=== PATIENT | female | born 1975 ===

== ENCOUNTER 2017-04-22 08:30 | Day surgery (SDC) | payer OTHER ==
[2017-04-22] MEDS ORDERED: CODE1TAB37 PO (13:10)
== END 2017-04-22 14:25 | disposition home or self-care (01) ==
LOC: CIR.AMB 08:30
DX: N83.12 Corpus luteum cyst of left ovary (principal); N80.1 Endometriosis of ovary; N73.6 Female pelvic peritoneal adhesions (postinfective); N83.292 Other ovarian cyst, left side; N83.291 Other ovarian cyst, right side; N92.5 Other specified irregular menstruation

== ENCOUNTER 2018-12-29 16:24 | Inpatient (IN) | payer OTHER ==
[~2018-12-29] VITALS: Ht 160 cm; Wt 89.8 kg
[~2018-12-29 16:24] MED LIST: CODE1TAB37 PO
== END 2019-01-13 09:32 | disposition home or self-care (01) | DRG 743 ==
LOC: O/R 01-11 06:01 → OB/GYN 01-11 06:01 → SURG 01-11 07:45 → OB/GYN 01-11 11:58
PROVIDERS: ADMIT Obstetrics & Gynecology
PROC: 0UT70ZZ Resection of Bilateral Fallopian Tubes, Open Approach (ICD-10-PCS; 2019-01-11)
PROC: 0UT20ZZ Resection of Bilateral Ovaries, Open Approach (ICD-10-PCS; 2019-01-11)
PROC: 0DNW0ZZ Release Peritoneum, Open Approach (ICD-10-PCS; 2019-01-11)
PROC: 0UT90ZL Resection of Uterus, Supracervical, Open Approach (ICD-10-PCS; principal; 2019-01-11 11:00)
DX: D25.1 Intramural leiomyoma of uterus (principal); K66.0 Peritoneal adhesions (postprocedural) (postinfection); N92.1 Excessive and frequent menstruation with irregular cycle